=== PATIENT | male | born 1975 | race Caucasian/White ===

== ENCOUNTER 2017-02-28 20:19 | Inpatient (IN) ==
[2017-02-28] MEDS ORDERED: 0.9 % Sodium Chloride 1,000 ML IVC ONE (20:36)
[2017-02-28] MEDS ORDERED: *HR* HYDROmorphone (PF) 1 MG/ML SYRINGE IV ONE (20:48)
[2017-02-28] MEDS ORDERED: Ondansetron 4 MG/2 ML VIAL IV ONE (20:48)
[2017-02-28 20:55] LABS: Basophils # 0.1 K/mcL (0.0-0.2); Basophils % 0.3 %; Eosinophils % 0.1 %; Hematocrit 50.9 % (37.5-50.1); Hemoglobin 17.3 g/dL (12.9-16.9); Immature Granulocytes % 0.9 % (0-4); Lymphocytes # 1.3 K/mcL (0.6-4.6); Lymphocytes % 6.6 %; Mean Corpuscular Hemoglobin 30.2 pg (28.0-33.3); Monocytes # 1.3 K/mcL (0.0-1.3); Monocytes % 6.5 %; Neutrophils # 16.4 K/mcL (1.6-8.9); Platelet Count 265 K/mcL (140-400); Red Blood Count 5.72 M/mcL (4.19-5.50); Red Cell Distribution Width 13.4 % (11.5-14.5); Segmented Neutrophils % 85.6 %
--- NOTE | 2017-02-28 20:55 | Emergency Department Note ---
Disposition Clinical Impression: Hypokalemia due to loss of potassium DKA (diabetic ketoacidoses) Qualifiers: Diabetes mellitus type: type 2 Diabetes mellitus complication detail: without coma Qualified Code(s): E13.10 - Other specified diabetes mellitus with ketoacidosis without coma Intractable vomiting Qualifiers: Vomiting type: unspecified Nausea presence: with nausea Qualified Code(s): R11.2 - Nausea with vomiting, unspecified Disposition: Admitted As Inpatient Condition: Critical SOB HPI - General Chief Complaint: ED Shortness of Breath/Dyspnea Stated Complaint: BHAVANA// N/V x2 days Time Seen by Provider: 02/28/17 20:31 Source: patient, family Limitations: no limitations Nursing Notes Reviewed: Yes Vital Signs Reviewed: Yes - History of Present Illness Patient states 2 days ago he started feeling upset stomach and started vomiting. Since he was not eating much he stopped taking his insulin. At that time he continued to vomit today vomited about 10 times he has diffuse abdominal pain and aching. He states he feels like he cannot catch his breath and is hyperventilating. Pt Subjective Complaint: shortness of breath Onset (ago): day(s) (2) Severity: moderate Consistency/Duration: constant Improves with: nothing Worsens with: nothing Associated symptoms: Reports: polydipsia. Denies: fever Treatment prior to arrival: none Cough present: No - Related Data Home Medications Medication Instructions Recorded Confirmed Cyclobenzaprine 10/03/16 Gabapentin 10/03/16 Invokana 10/03/16 Janumet 50-1,000 mg Tablet 10/03/16 Levemir 10/03/16 Lisinopril 10/03/16 NovoLOG 10/03/16 Sertraline 10/03/16 Vicodin Es 7.5-300 mg Tablet 10/03/16 Vitamin B Complex 10/03/16 10/03/16 Previous Rx's Medication Instructions Recorded Sulfacetamide Sodium 10% OPTH 2 drop LEFT EYE QID #5 ml 10/03/16 [Bleph 10] PredniSONE [Deltasone] 20 mg PO DAILY #7 tablet 12/24/16 Sulfamethoxazole/Trimeth DS 1 each PO BID #14 tablet 12/24/16 [Bactrim DS] Allergies Allergy/AdvReac Type Severity Reaction Status Date / Time insulin glargine Allergy See Verified 02/28/17 20:28 [From Lantus] Comments All systems ED: reviewed and negative except as stated. Constitutional: Denies: fever, chills Gastrointestinal: Reports: abdominal pain Past Medical History - Past Medical History Source: patient, nursing notes reviewed Medical history: Reports: diabetes, hypertension Psychiatric history: Reports: depression - Social History Smoking Status: Never smoker Smokeless Tobacco Status: No Alcohol use: Reports: none Drug use: Reports: none Physical Exam - General Limitations: no limitations General appearance: alert, anxious, in distress - Head Head exam: atraumatic, normocephalic, normal inspection - Eye Eye exam: Present: normal appearance, PERRL, EOMI - Expanded Eye Exam Pupils: Left: reactive - ENT ENT exam: normal exam, normal oropharynx, mucous membranes moist - Expanded ENT Exam External ear exam: Present: normal external inspection Mouth exam: Present: normal external inspection Teeth exam: Present: normal inspection Throat exam: Present: normal inspection - Neck Neck exam: Present: normal inspection, full ROM, trachea midline - Chest Chest inspection: Present: normal inspection, symmetric chest wall rise - Respiratory Respiratory exam: Present: normal lung sounds bilaterally - Cardiovascular Cardiovascular exam: Present: tachycardia - Abdominal Exam Abdominal exam: Present: soft, normal bowel sounds. Absent: guarding, rebound Abdominal tenderness: Present: diffuse, mild - Extremities Exam Extremities exam: Present: normal inspection, full ROM. Absent: tenderness, pedal edema - Expanded Upper Extremity Exam Shoulder exam: Present: normal inspection, full ROM Arm exam: Present: normal inspection, full ROM Elbow exam: Present: normal inspection, full ROM Forearm/Wrist exam: Present: normal inspection, full ROM Hand exam: Present: normal inspection, full ROM Vascular exam: Normal: capillary refill, radial pulse - Expanded Lower Extremity Exam Hip/Pelvis exam: Present: normal inspection, full ROM Upper leg exam: Present: normal inspection, full ROM Knee exam: Present: normal inspection, full ROM Lower leg exam: Present: normal inspection, full ROM Ankle exam: Present: normal inspection, full ROM Foot/toe exam: Present: normal inspection, full ROM Neurovascular/Tendon exam: Absent: motor deficit, sensory deficit, tendon deficit - Back Exam Back exam: Present: normal inspection, full ROM. Absent: tenderness - Neurological Exam Neurological exam: Present: alert, oriented X3 - Expanded Neurological Exam Patient oriented to: Present: person, place, time Coma Scale Eye Opening: Spontaneous Coma Scale Motor Response: Obeys Commands Coma Scale Verbal Response: Oriented Coma Scale Total: 15 - Psychiatric Psychiatric exam: Present: normal affect, normal mood - Skin Skin exam: Present: warm, dry, intact, normal color Course Vital Signs Temperature 97.8 F 02/28/17 20:26 Pulse Rate 144 02/28/17 20:26 Respiratory Rate 28 02/28/17 20:26 Blood Pressure 156/91 02/28/17 20:26 O2 Sat by Pulse Oximetry 98 02/28/17 20:26 Temperature 97.8 F 02/28/17 20:26 Pulse Rate 120 02/28/17 22:31 Respiratory Rate 18 02/28/17 22:31 Blood Pressure 154/78 02/28/17 22:31 O2 Sat by Pulse Oximetry 98 02/28/17 22:31 Oxygen Delivery Oxygen Delivery Room Air Shortness of Breath/Dyspnea - MDM Narrative Medical decision making narrative: After the workup patient was a type II diabetic appears to be's in DKA which would explain his dyspnea and hyperventilating, is also very acidotic on labs. We fluid resuscitated with 3 L normal saline started him on insulin drip started oral replacement of potassium Dr. DENILSON reich the medical service - Differential Diagnosis Likely: acute exacerbation of chronic obstructive airways disease, congestive heart failure, pulmonary embolism, pneumothorax, arrhythmia - Medical Records Medical records reviewed: Yes I reviewed the patient's medical records. - Lab Data Lab results reviewed: Yes I reviewed the patient's lab results. Result diagrams: 02/28/17 20:46 02/28/17 20:46 Lab Results 02/28/17 02/28/17 02/28/17 Range/Units 20:46 20:46 20:46 WBC 19.2 H (4.3-11.1) K/mcL RBC 5.72 H (4.19-5.50) M/mcL Hgb 17.3 H (12.9-16.9) g/dL Hct 50.9 H (37.5-50.1) % MCV 89.0 (83.0-100.0) fL MCH 30.2 (28.0-33.3) pg MCHC 34.0 (31.6-35.5) g/dL RDW 13.4 (11.5-14.5) % Plt Count 265 (140-400) K/mcL MPV 11.0 (9.4-12.4) fL Immature Gran % 0.9 (0-4) % Seg Neutrophils % 85.6 % Lymphocytes % 6.6 % Monocytes % 6.5 % Eosinophils % 0.1 % Basophils % 0.3 % Neutrophils # 16.4 H (1.6-8.9) K/mcL Lymphocytes # 1.3 (0.6-4.6) K/mcL Monocytes # 1.3 (0.0-1.3) K/mcL Eosinophils # 0.0 (0.0-0.6) K/mcL Basophils # 0.1 (0.0-0.2) K/mcL PT 10.9 (9.4-12.1) Seconds INR 1.0 APTT 32.4 (26.0-36.0) Seconds D-Dimer 1063 H (0-500) ng/mLFEU VBG pH (7.32-7.42) pH Units VBG pCO2 (41-51) mmHg VBG pO2 (25-40) mmHg VBG HCO3 (21-27) mEq/L Sodium 133 L (136-145) mEq/L Potassium 2.9 L (3.5-4.5) mEq/L Chloride 112 H (98-109) mEq/L Carbon Dioxide < 5 L* (19-29) mEq/L BUN 8 (8-26) mg/dL Creatinine 0.83 (0.72-1.25) mg/dL Est GFR ( Amer) > 60 (> 60) Est GFR (Non-Af Amer) > 60 (> 60) BUN/Creatinine Ratio 10 (6-26) Glucose 320 H (70-99) mg/dL Calculated Osmolality 287 (280-300) Calcium 6.8 L (8.6-10.8) mg/dL Magnesium 1.5 L (1.6-2.6) mg/dL Troponin I (0-0.03) ng/mL B-Natriuretic Peptide (0-100) pg/mL Lipase 76 (8-78) Units/L Beta-Hydroxybutyric Acd (0.02-0.27) mmol/L 02/28/17 02/28/17 02/28/17 Range/Units 20:46 20:46 20:46 WBC (4.3-11.1) K/mcL RBC (4.19-5.50) M/mcL Hgb (12.9-16.9) g/dL Hct (37.5-50.1) % MCV (83.0-100.0) fL MCH (28.0-33.3) pg MCHC (31.6-35.5) g/dL RDW (11.5-14.5) % Plt Count (140-400) K/mcL MPV (9.4-12.4) fL Immature Gran % (0-4) % Seg Neutrophils % % Lymphocytes % % Monocytes % % Eosinophils % % Basophils % % Neutrophils # (1.6-8.9) K/mcL Lymphocytes # (0.6-4.6) K/mcL Monocytes # (0.0-1.3) K/mcL Eosinophils # (0.0-0.6) K/mcL Basophils # (0.0-0.2) K/mcL PT (9.4-12.1) Seconds INR APTT (26.0-36.0) Seconds D-Dimer (0-500) ng/mLFEU VBG pH (7.32-7.42) pH Units VBG pCO2 (41-51) mmHg VBG pO2 (25-40) mmHg VBG HCO3 (21-27) mEq/L Sodium (136-145) mEq/L Potassium (3.5-4.5) mEq/L Chloride (98-109) mEq/L Carbon Dioxide (19-29) mEq/L BUN (8-26) mg/dL Creatinine (0.72-1.25) mg/dL Est GFR ( Amer) (> 60) Est GFR (Non-Af Amer) (> 60) BUN/Creatinine Ratio (6-26) Glucose (70-99) mg/dL Calculated Osmolality (280-300) Calcium (8.6-10.8) mg/dL Magnesium (1.6-2.6) mg/dL Troponin I 0.00 (0-0.03) ng/mL B-Natriuretic Peptide 17 (0-100) pg/mL Lipase (8-78) Units/L Beta-Hydroxybutyric Acd > 2.00 H (0.02-0.27) mmol/L 02/28/17 Range/Units 21:34 WBC (4.3-11.1) K/mcL RBC (4.19-5.50) M/mcL Hgb (12.9-16.9) g/dL Hct (37.5-50.1) % MCV (83.0-100.0) fL MCH (28.0-33.3) pg MCHC (31.6-35.5) g/dL RDW (11.5-14.5) % Plt Count (140-400) K/mcL MPV (9.4-12.4) fL Immature Gran % (0-4) % Seg Neutrophils % % Lymphocytes % % Monocytes % % Eosinophils % % Basophils % % Neutrophils # (1.6-8.9) K/mcL Lymphocytes # (0.6-4.6) K/mcL Monocytes # (0.0-1.3) K/mcL Eosinophils # (0.0-0.6) K/mcL Basophils # (0.0-0.2) K/mcL PT (9.4-12.1) Seconds INR APTT (26.0-36.0) Seconds D-Dimer (0-500) ng/mLFEU VBG pH 7.15 L* (7.32-7.42) pH Units VBG pCO2 19 L (41-51) mmHg VBG pO2 74 H (25-40) mmHg VBG HCO3 6.6 L (21-27) mEq/L Sodium (136-145) mEq/L Potassium (3.5-4.5) mEq/L Chloride (98-109) mEq/L Carbon Dioxide (19-29) mEq/L BUN (8-26) mg/dL Creatinine (0.72-1.25) mg/dL Est GFR ( Amer) (> 60) Est GFR (Non-Af Amer) (> 60) BUN/Creatinine Ratio (6-26) Glucose (70-99) mg/dL Calculated Osmolality (280-300) Calcium (8.6-10.8) mg/dL Magnesium (1.6-2.6) mg/dL Troponin I (0-0.03) ng/mL B-Natriuretic Peptide (0-100) pg/mL Lipase (8-78) Units/L Beta-Hydroxybutyric Acd (0.02-0.27) mmol/L - Radiology Data Radiology results reviewed: Yes I reviewed the patient's radiology results. - EKG Data EKG shows normal: Reports: sinus rhythm Rate: Reports: tachycardia (142) [place]/QRS: Reports: normal Interpretation: Reports: nonspecific ST-T wave changes Critical Care Time Critical Care Time: Yes Total Critical Care Time: 40 Attestation: Critical care performed: Time is exclusive of separately billable procedures. Time includes: direct patient care, patient reassessment, coordination of patient care, interpretation of data (laboratory data, radiology data, and respiratory data), review of patient's medical records, medical consultation and documentation of patient care. Procedures included in critical care time: Procedures excluded from critical care time:
[2017-02-28 21:01] LABS: Prothrombin Time 10.9 Seconds (9.4-12.1)
[2017-02-28 21:04] LABS: Activated Partial Thrombo Time 32.4 Seconds (26.0-36.0)
[2017-02-28 21:11] LABS: BUN/Creatinine Ratio 10 (6-26); Blood Urea Nitrogen 8 mg/dL (8-26); Calcium 6.8 mg/dL (8.6-10.8); Chloride 112 mEq/L (98-109); Glucose 320 mg/dL (70-99); Lipase 76 Units/L (8-78); Osmolality,Calculated 287 (280-300); Potassium 2.9 mEq/L (3.5-4.5); eGFR For African Americans > 60 (> 60); eGFR For Non-African Americans > 60 (> 60)
[2017-02-28 21:15] LABS: Carbon Dioxide < 5 mEq/L (19-29)
[2017-02-28 21:16] LABS: Sodium 133 mEq/L (136-145)
[2017-02-28 21:29] LABS: Magnesium 1.5 mg/dL (1.6-2.6)
[2017-02-28 21:41] LABS: VBG HCO3 6.6 mEq/L (21-27)
[2017-02-28 21:43] LABS: VBG PH 7.15 pH Units (7.32-7.42)
[2017-02-28] MEDS ORDERED: *HR* Dextrose 50 % in Water (Syg) 50 ML SYRINGE IVP PRN (21:44)
[2017-02-28] MEDS ORDERED: Insulin Human Regular 100 UNIT in 0.9 % Sodium Chloride 100 ML IVC SCH (21:45)
[2017-02-28] MEDS: 0.9 % Sodium Chloride 1,000 ML IVC SCH ×2 (22:19→22:35)
[2017-02-28] MEDS ORDERED: Potassium Chloride 20 MEQ, Lidocaine 1% 2 ML in D5% in Water 250 ML IVPB ONE (23:04)
[2017-02-28] MEDS ORDERED: Ondansetron 4 MG/2 ML VIAL IVP PRN (23:09)
[2017-02-28] MEDS ORDERED: Magnesium Sulfate 2 GM in D5% in Water 100 ML IVPB ONE (23:22)
--- NOTE | 2017-02-28 23:23 | Internal Med History&Physical ---
Date of Encounter: 02/28/17 Time of Encounter: 23:23 Assessment and Plan (1) DKA (diabetic ketoacidoses) Current visit: Yes Status: Acute 3 L bolus of normal saline given in the emergency room. Insulin drip initiated .1 unit per KG per hour. PH 7.15 I will start the patient on bicarb drip for a few hours. He has hypokalemia And expected to get worse with bicarb and insulin and so we will give a total of 60 mEq potassium now for his potassium of 2.9. Follow BMP, venous blood gas and ketones every 4 hours. Keep NPO. Once sugar decrease below 250 fluids will be changed to D5 half normal saline. Patient is hemodynamically stable. I do not see any infectious etiology. Urinalysis will be checked. pancreatic enzymes are normal. His white count is 19,000 may be reactive. No clear signs of infection. He will receive heparan and ppi for DVT and peptic ulcer disease prophylaxis respectively. He is full code Qualifiers: Diabetes mellitus type: type 2 Diabetes mellitus complication detail: without coma Qualified Code(s): E13.10 - Other specified diabetes mellitus with ketoacidosis without coma Internal Medicine - H&P: HPI Chief complaint: abdominal pain and vomiting History of present illness: Mr. Escalona is a 41 year old male with a history of type II diabetes mellitus on Levemir 50 units twice-daily in addition to sliding scale insulin Presents to the emergency room today the main complain of abdominal pain and vomiting. For the past 2 days patient started experiencing mid-abdominal pain associated with intractable nonbloody nonbelievers vomiting. He was unable to keep food down the past couple days. He had stopped taking his insulin the past 2 days because of that. He denies any fevers or chills. No cough or expectoration. No diarrhea but rather constipated. No urine symptoms. Patient reports noncompliance with insulin missing approximately 1/4 of his insulin doses. No prior episodes of DKA Past Med Surg Social Fam HX - Past Medical History Medical history: diabetes, hypertension Psychiatric history: depression - Social History Smoking Status: Never smoker Smokeless Tobacco Status: No Alcohol use: none Drug use: none Internal Medicine - H&P: Meds Cyclobenzaprine 10/03/16 [History] Gabapentin 10/03/16 [History] Invokana 10/03/16 [History] Janumet 50-1,000 mg Tablet 10/03/16 [History] Levemir 10/03/16 [History] Lisinopril 10/03/16 [History] NovoLOG 10/03/16 [History] Sertraline 10/03/16 [History] Sulfacetamide Sodium 10% OPTH [Bleph 10] 2 drop LEFT EYE QID #5 ml 10/03/16 [Rx] Vicodin Es 7.5-300 mg Tablet 10/03/16 [History] Vitamin B Complex 10/03/16 [History] PredniSONE [Deltasone] 20 mg PO DAILY #7 tablet 12/24/16 [Rx] Sulfamethoxazole/Trimeth DS [Bactrim DS] 1 each PO BID #14 tablet 12/24/16 [Rx] Allergies insulin glargine [From Lantus] Allergy (Verified 02/28/17 20:28) See Comments legs swell All Systems PM: A 10-system review of systems was performed and is negative for pertinent findings except as documented above in the HPI. Review of systems: 10 point review of systems is negative except for HPI - Constitutional Vitals: Temp Pulse Resp BP Pulse Ox 98.8 F 114 18 159/97 98 02/28/17 23:12 02/28/17 23:12 02/28/17 23:12 02/28/17 23:12 02/28/17 23:12 Exam: Gen.: patient is alert oriented times 3 not in distress. Cardiac: normal S1 S2 no additional sounds or murmurs chest: fair air entry. no active wheezing. No crackles or bronchial breathing. abdomen: soft nontender nondistended normal bowel sounds neuro: no focal deficit Internal Med - H&P Results - Labs CBC & Chem 7: 02/28/17 20:46 02/28/17 20:46
[2017-02-28] MEDS ORDERED: D5% in 0.9% NACL 1,000 ML IVC PRN (23:59)
[2017-03-01] MEDS: Sodium Bicarbonate 50 MEQ in 0.45 % Sodium Chloride 1,000 ML IVC SCH ×4 (00:45→21:00)
[2017-03-01 00:55] LABS: Basophils % 0.2 %; Eosinophils % 0.1 %; Hematocrit 42.7 % (37.5-50.1); Immature Granulocytes % 0.5 % (0-4); Lymphocytes # 1.4 K/mcL (0.6-4.6); Lymphocytes % 8.8 %; Mean Corpuscular HGB Conc 35.8 g/dL (31.6-35.5); Mean Corpuscular Volume 86.6 fL (83.0-100.0); Monocytes # 1.1 K/mcL (0.0-1.3); Monocytes % 6.8 %; Neutrophils # 13.2 K/mcL (1.6-8.9); Platelet Count 203 K/mcL (140-400); Red Blood Count 4.93 M/mcL (4.19-5.50); Red Cell Distribution Width 13.5 % (11.5-14.5); Segmented Neutrophils % 83.6 %
[2017-03-01 00:56] LABS: Hemoglobin 15.3 g/dL (12.9-16.9)
[2017-03-01 01:08] LABS: Hemoglobin A1C 12.7 %
[2017-03-01 01:09] LABS: BUN/Creatinine Ratio 8 (6-26); Blood Urea Nitrogen 9 mg/dL (8-26); Chloride 101 mEq/L (98-109); Glucose 283 mg/dL (70-99); Osmolality,Calculated 275 (280-300); Sodium 128 mEq/L (136-145); eGFR For African Americans > 60 (> 60); eGFR For Non-African Americans > 60 (> 60)
[2017-03-01 01:10] LABS: Calcium 10.2 mg/dL (8.6-10.8); Potassium 4.5 mEq/L (3.5-4.5)
[2017-03-01 01:13] LABS: Carbon Dioxide 9 mEq/L (19-29)
[2017-03-01 01:19] LABS: Beta-Hydroxybutyric Acid > 2.00 mmol/L (0.02-0.27)
[2017-03-01] MEDS: Pantoprazole 40 MG VIAL IVP SCH ×2 (02:07→08:43)
[2017-03-01 03:53] LABS: VBG HCO3 14.7 mEq/L (21-27); VBG PH 7.36 pH Units (7.32-7.42)
[2017-03-01 04:16] LABS: BUN/Creatinine Ratio 7 (6-26); Blood Urea Nitrogen 7 mg/dL (8-26); Calcium 9.6 mg/dL (8.6-10.8); Carbon Dioxide 12 mEq/L (19-29); Chloride 103 mEq/L (98-109); Glucose 240 mg/dL (70-99); Magnesium 2.2 mg/dL (1.6-2.6); Osmolality,Calculated 274 (280-300); Potassium 4.2 mEq/L (3.5-4.5); Sodium 129 mEq/L (136-145); eGFR For African Americans > 60 (> 60); eGFR For Non-African Americans > 60 (> 60)
[2017-03-01 04:17] LABS: C-Reactive Protein 362 mg/L (Less than 5)
[2017-03-01 04:19] LABS: Beta-Hydroxybutyric Acid > 2.00 mmol/L (0.02-0.27)
[2017-03-01 04:52] LABS: BUN/Creatinine Ratio 7 (6-26); Blood Urea Nitrogen 7 mg/dL (8-26); Calcium 9.6 mg/dL (8.6-10.8); Carbon Dioxide 12 mEq/L (19-29); Chloride 103 mEq/L (98-109); Glucose 240 mg/dL (70-99); Osmolality,Calculated 272 (280-300); Potassium 4.2 mEq/L (3.5-4.5); Sodium 128 mEq/L (136-145); eGFR For African Americans > 60 (> 60); eGFR For Non-African Americans > 60 (> 60)
[2017-03-01] MEDS ORDERED: Acetaminophen 325 MG TABLET PO ONE (04:58)
[2017-03-01] MEDS: Insulin Human Regular 100 UNIT in 0.9 % Sodium Chloride 100 ML IVC SCH ×2 (05:38→09:56)
[2017-03-01 08:29] LABS: Beta-Hydroxybutyric Acid 0.62 mmol/L (0.02-0.27)
[2017-03-01 08:33] LABS: BUN/Creatinine Ratio 7 (6-26); Blood Urea Nitrogen 6 mg/dL (8-26); Calcium 9.6 mg/dL (8.6-10.8); Carbon Dioxide 18 mEq/L (19-29); Chloride 106 mEq/L (98-109); Glucose 93 mg/dL (70-99); Osmolality,Calculated 271 (280-300); Potassium 3.4 mEq/L (3.5-4.5); eGFR For African Americans > 60 (> 60); eGFR For Non-African Americans > 60 (> 60)
[2017-03-01 08:35] LABS: Sodium 132 mEq/L (136-145)
[2017-03-01] MEDS ORDERED: Dextrose Gel 15 GM PO PRN ×2 (11:38)
[2017-03-01] MEDS ORDERED: *HR* Dextrose 50 % in Water (Syg) 50 ML SYRINGE IVP PRN (11:38)
[2017-03-01] MEDS ORDERED: D5% in Water 1,000 ML IVC PRN (11:38)
[2017-03-01] MEDS ORDERED: Insulin DETEMIR 100 UNIT/ML X5UNITS SQ ONE (11:40)
--- NOTE | 2017-03-01 12:00 | Electrocardiograph Report ---
[address] [address] Test Date: 2017-02-28 Pat Name: Phil Escalona Department: 104 Room: 15 Gender: M Senior Lead Software Engineer: RAISA : 1975 Requested By: Devante Castelan Order Number: [id number] Reading MD: Samuel Carlin Measurements Intervals [place] Rate: 142 P: 69 GA: 145 QRS: 40 QRSD: 82 T: 35 QT: 293 QTc: 375 Interpretive Statements SINUS TACHYCARDIA MINIMAL ST DEPRESSION ABNORMAL RHYTHM ECG Electronically Signed On 03-01-2017 11:58:47 EDT by Samuel Carlin
[2017-03-01] MEDS: *HR* HYDROcodone/Acet 7.5/325 mg TABLET PO PRN ×2 (12:27→18:38)
[2017-03-01] MEDS: 0.9 % Sodium Chloride w KCl 20 MEQ/1,000 ML MLS IVC SCH ×2 (12:27→22:15)
--- NOTE | 2017-03-01 15:21 | Internal Med Progress Note ---
Date of Encounter: 03/01/17 Time of Encounter: 10:30 - Assessment and plan (1) DKA (diabetic ketoacidoses) Current Visit: Yes Status: Acute Assessment and plan: In DKA and on insulin drip. We will continue to follow BMP and make adjustments accordingly. Once blood sugars are better controlled and anion gap closes, we will start patient on subcutaneous insulin and diabetic diet. Monitor blood sugars closely. High risk for complications. Qualifiers: Diabetes mellitus type: type 2 Diabetes mellitus complication detail: without coma Qualified Code(s): E13.10 - Other specified diabetes mellitus with ketoacidosis without coma (2) Acute pancreatitis Current Visit: Yes Status: Acute Assessment and plan: Patient with CT scan findings suggestive of pancreatic inflammation. However, he seemed asymptomatic at this time without any significant abdominal pain nausea or vomiting. Continue IV fluids. Monitor vital signs closely. Qualifiers: Pancreatitis type: unspecified pancreatitis type Acute pancreatitis complication: no infection or necrosis Qualified Code(s): K85.90 - Acute pancreatitis without necrosis or infection, unspecified (3) Intractable vomiting Current Visit: Yes Status: Resolved Assessment and plan: this has now resolved. Qualifiers: Vomiting type: cyclical vomiting Nausea presence: with nausea Qualified Code(s): G43.A1 - Cyclical vomiting, intractable (4) Hypokalemia due to loss of potassium Current Visit: Yes Status: Acute Assessment and plan: Due to persistent vomiting. We will replace orally and intravenously. - Subjective Interval history: Patient is awake and alert. Feeling better today. Denies any abdominal pain. No nausea or vomiting. Complains of some back pain which is chronic. No fever chills or night sweats. - Constitutional Vitals: Temp Pulse Resp BP Pulse Ox 98.1 F 98 15 138/70 98 03/01/17 11:35 03/01/17 11:35 03/01/17 11:35 03/01/17 11:35 03/01/17 11:35 General appearance: Present: cooperative, mild distress, A&O X 3, pleasant, answers questions appropriately - Neck Neck exam general surgery: Present: supple, trachea midline. Absent: lymphadenopathy - Respiratory Respiratory exam: Present: CTAB. Absent: accessory muscle use, rales, rhonchi, wheezes - Cardiovascular Cardiovascular exam: Present: RRR, +S1, +S2. Absent: diastolic murmur, gallop, rubs, systolic murmur - GI/Abdominal GI/Abdominal exam: Present: normal bowel sounds, soft, no peritoneal signs. Absent: distended, tenderness - Extremities Exam Extremities exam: Present: warm, radial pulses palpable and symetrical. Absent : calf tenderness, cyanotic, pedal edema - Neurological Exam Neurological exam: Present: alert, CN II-XII intact, oriented X3, no focal deficits. Absent: facial droop, speech deficit - Skin Skin exam: Present: dry, intact Internal Medicine: Result - Labs CBC & Chem 7: 03/01/17 00:45 03/01/17 08:02 Labs: Short CBC 03/01/17 Range/Units 00:45 WBC 15.8 H (4.3-11.1) K/mcL Hgb 15.3 D (12.9-16.9) g/dL Hct 42.7 (37.5-50.1) % Plt Count 203 (140-400) K/mcL Neutrophils # 13.2 H (1.6-8.9) K/mcL BMP 03/01/17 03/01/17 03/01/17 00:45 03:44 03:44 Sodium 128 L 128 L 129 L Potassium 4.5 D 4.2 4.2 Chloride 101 103 103 Carbon Dioxide 9 L* 12 L 12 L BUN 9 7 L 7 L Creatinine 1.19 1.02 1.01 Glucose 283 H 240 H 240 H Calcium 10.2 D 9.6 9.6 03/01/17 08:02 Sodium 132 L Potassium 3.4 L Chloride 106 Carbon Dioxide 18 L BUN 6 L Creatinine 0.83 Glucose 93 Calcium 9.6 - ABG Interpretation ABG results: PT/INR, D-dimer PT 10.9 Seconds (9.4-12.1) 02/28/17 20:46 D-Dimer 1063 ng/mLFEU (0-500) H 02/28/17 20:46 Consult Discharge Plan - Plan Referrals: ROSALIE SCHREIBER [Other] - 03/09/17 10:45 am - Attending Attestation This document has been at least partially created by Moogi recognition technology by Dr. Emerson. Errors in grammar, wording or other phrases may exist. If errors are found after the documentation is signed, they will be addressed individually in the addendum section of this document when appropriate.
[2017-03-01 15:36] LABS: BUN/Creatinine Ratio 8 (6-26); Blood Urea Nitrogen 6 mg/dL (8-26); Calcium 9.1 mg/dL (8.6-10.8); Carbon Dioxide 17 mEq/L (19-29); Chloride 104 mEq/L (98-109); Glucose 224 mg/dL (70-99); Osmolality,Calculated 279 (280-300); Potassium 3.7 mEq/L (3.5-4.5); Sodium 132 mEq/L (136-145); eGFR For African Americans > 60 (> 60); eGFR For Non-African Americans > 60 (> 60)
[2017-03-01] MEDS: Insulin LISPRO 300 UNITS/3 ML VIAL SQ SCH (17:07)
[2017-03-01] MEDS: Insulin DETEMIR 100 UNIT/ML X5UNITS SQ SCH (20:57)
[2017-03-01] MEDS ORDERED: Insulin LISPRO 300 UNITS/3 ML VIAL SQ SCH (21:00)
[2017-03-02] MEDS: *HR* HYDROcodone/Acet 7.5/325 mg TABLET PO PRN ×2 (00:44→08:45)
[2017-03-02 05:53] LABS: BUN/Creatinine Ratio 8 (6-26); Blood Urea Nitrogen 6 mg/dL (8-26); Calcium 9.3 mg/dL (8.6-10.8); Carbon Dioxide 22 mEq/L (19-29); Chloride 101 mEq/L (98-109); Glucose 226 mg/dL (70-99); Osmolality,Calculated 285 (280-300); Potassium 3.8 mEq/L (3.5-4.5); Sodium 135 mEq/L (136-145); eGFR For African Americans > 60 (> 60); eGFR For Non-African Americans > 60 (> 60)
[2017-03-02 07:03] VITALS: BP 134/79
[2017-03-02] MEDS: 0.9 % Sodium Chloride w KCl 20 MEQ/1,000 ML MLS IVC SCH (07:21)
[2017-03-02] MEDS: Insulin LISPRO 300 UNITS/3 ML VIAL SQ SCH (08:27)
[2017-03-02] MEDS: Pantoprazole 40 MG VIAL IVP SCH (08:28)
[2017-03-02] MEDS: Sodium Bicarbonate 50 MEQ in 0.45 % Sodium Chloride 1,000 ML IVC SCH (08:33)
[2017-03-02] MEDS: Insulin DETEMIR 100 UNIT/ML X5UNITS SQ SCH (08:33)
--- NOTE | 2017-03-02 10:02 | Discharge Summary ---
Date of Encounter: 03/02/17 Time of Encounter: 09:58 - Discharge Diagnosis (1) DKA (diabetic ketoacidoses) Priority: Primary Status: Acute Qualifiers: Diabetes mellitus type: type 2 Diabetes mellitus complication detail: without coma Qualified Code(s): E13.10 - Other specified diabetes mellitus with ketoacidosis without coma (2) Intractable vomiting Priority: Primary Status: Resolved Qualifiers: Vomiting type: cyclical vomiting Nausea presence: with nausea Qualified Code(s): G43.A1 - Cyclical vomiting, intractable (3) Hypokalemia due to loss of potassium Priority: Primary Status: Acute (4) Acute pancreatitis Priority: Primary Status: Acute Qualifiers: Pancreatitis type: unspecified pancreatitis type Acute pancreatitis complication: no infection or necrosis Qualified Code(s): K85.90 - Acute pancreatitis without necrosis or infection, unspecified (5) Diabetes mellitus Priority: Secondary Status: Chronic Qualifiers: Diabetes mellitus type: type 2 Diabetes mellitus complication status: with hyperglycemia Diabetes mellitus ad terminal makeup operator insulin use: with ad terminal makeup operator use Qualified Code(s): E11.65 - Type 2 diabetes mellitus with hyperglycemia; Z79.4 - senior care (current) use of insulin (6) Essential hypertension Priority: Secondary Status: Chronic (7) Depression Priority: Secondary Status: Chronic Qualifiers: Depression Type: unspecified Qualified Code(s): F32.9 - Major depressive disorder, single episode, unspecified - Discharge Medications Prescriptions: Omeprazole [PriLOSEC] 20 mg PO DAILY #30 cap Home Medications: Cyclobenzaprine [Flexeril] 10 mg PO TID 10/03/16 [History] Gabapentin [Neurontin] 600 mg PO TID 10/03/16 [History] Insulin ASPART [NovoLOG] 0 unit SQ TID PRN 10/03/16 [History] Insulin DETEMIR [Levemir] 50 unit SQ BID 10/03/16 [History] Lisinopril [Zestril] 20 mg PO DAILY 10/03/16 [History] Sertraline [Zoloft] 50 mg PO DAILY 10/03/16 [History] Sitagliptin Phos/Metformin HCl [Janumet 50-1,000 mg Tablet] 1 each PO BID [History] Fenofibrate,Micronized [Fenofibrate] 135 mg PO DAILY 03/01/17 [History] HYDROcodone/Acet 10/325 mg [[place] 10-325 mg] 1 tab PO TID PRN 03/01/17 [History] Ibuprofen [Motrin] 800 mg PO TID PRN 03/01/17 [History] Liraglutide [Victoza 2-Meño] 1.2 mg SQ DAILY 03/01/17 [History] Rosuvastatin [Crestor] 10 mg PO HS 03/01/17 [History] Omeprazole [PriLOSEC] 20 mg PO DAILY #30 cap 03/02/17 [Rx] Allergies/Adverse Reactions: Allergies insulin glargine [From Lantus] Allergy (Verified 03/01/17 13:03) See Comments legs ame Date of admission: 02/28/17 23:07 Primary care physician: PCP NO Consults: 03/02/17 07:57 Consult to [employer] [CONS] Routine Comment: Discharging clinician: Amirah Najera Anticipated date of discharge: 03/02/17 - Patient Status Disposition: Home, Self-Care Condition: Good Functional capacity at discharge: independent ambulation Overall status at discharge: patient is progressing back to baseline - Discharge Instructions Instructions: Pancreatitis (DC), Diabetes Mellitus Type 2 in Adults (DC) Follow Up With: ROSALIE SCHREIBER [Other] - 03/09/17 10:45 am Additional Instructions: F/up with PCP in 1-2 weeks; patient would like to change PCP to [facility]; - Diet and Activity Activity: resume usual activities as tolerated Diet: diabetic diet, low fat, low cholesterol, low salt diet Hospital course: Mr. Escalona is a 41 year old male with history of uncontrolled diabetes was admitted with intractable nausea and vomiting. Patient had no clinical or biochemical evidence of pancreatitis but CT abdomen/pelvis done in the emergency room was suggestive of mild inflammation of the pancreas. He was also noted to be in diabetic ketoacidosis and was started on IV insulin drip along with aggressive IV hydration and kept nothing by mouth initially. His clinical condition and labs gradually improved and is currently able to tolerate oral diet with improvement in nausea and vomiting. Patient is noted to be having psychosocial stressors at home with his mother's and noted to be noncompliant with blood glucose monitoring and insulin. His hemoglobin A1c is noted to be 12.7% and he does understand the risks of continued noncompliance. He wishes to change his primary care provider to [facility] in [place] or [facility], it would be closer to his current residence and is motivated to keep his appointments from now. His blood sugars are currently improved but continued to remain high 200s probably because patient has not been receiving his home doses of insulin while in the hospital. He is currently medically stable for discharge with outpatient follow-up. - Time Spent with Patient Total time spent providing and/or coordinating discharge services: Greater than 30 minutes (45 min) - Constitutional Vitals: Temp Pulse Resp BP Pulse Ox 98.1 F 87 16 134/79 97 03/02/17 07:02 03/02/17 07:02 03/02/17 07:02 03/02/17 07:02 03/02/17 07:02 General appearance: Present: A&O X 3, answers questions appropriately - Respiratory Respiratory exam: Present: CTAB. Absent: accessory muscle use, rales, rhonchi, wheezes - Cardiovascular Cardiovascular exam: Present: RRR, +S1, +S2. Absent: diastolic murmur, gallop, rubs, systolic murmur
== END 2017-03-02 11:07 | disposition home or self-care (01) | DRG 637 ==
LOC: 2NNU 20:19 → EMEROO 20:19 → 2NNU 22:55 → SUATTDRO 23:07 → 2ANU 03-01 15:36
PROVIDERS: ADMIT Hospitalist; ATTEND Internal Medicine